=== PATIENT | female | born 1965 | race Caucasian/White ===

== ENCOUNTER 2021-08-01 19:00 | Emergency (ER) | payer BC ==
[~2021-08-01] VITALS: Ht 154.9 cm; Wt 74.8 kg
[2021-08-01 19:42] LABS: BASOPHILS # (AUTO) 0.1 K/uL (0.0-0.2); EOSINOPHILS # (AUTO) 0.1 K/uL (0.0-0.4); EOSINOPHILS % (AUTO) 1.6 % (0.0-4.0); HEMATOCRIT 40.4 % (36-48); LYMPHOCYTES # (AUTO) 2.4 K/uL (1.0-5.5); LYMPHOCYTES % (AUTO) 35.5 % (20.5-51.5); MEAN CORPUSCULAR HEMOGLOBIN 30 pg (27-31); MEAN CORPUSCULAR HGB CONC 35 % (32-36); MEAN CORPUSCULAR VOLUME 86 fL (79.0-98.0); MONOCYTES # (AUTO) 0.5 K/uL (0.0-1.0); MONOCYTES % (AUTO) 7.4 % (1.7-9.3); NEUTROPHILS # (AUTO) 3.7 K/uL (1.8-7.7); NEUTROPHILS % (AUTO) 54.5 % (40.0-70.0); PLATELET COUNT (AUTO) 274 K/uL (130-430); RED BLOOD CELL COUNT(AUTO) 4.72 MIL/uL (4.2-6.2); RED CELL DISTRIBUTION WIDTH 13.7 % (9.0-15.0); WHITE BLOOD COUNT (AUTO) 6.8 K/uL (4.8-10.8)
[2021-08-01 20:13] LABS: ALANINE AMINOTRANSFERASE 36 U/L (12-78); ALBUMIN 3.8 g/dL (3.4-4.8); ASPARTATE AMINOTRANSFERASE 21 U/L (10-37); CALCIUM 8.5 mg/dL (8.4-11.0); CREATININE 0.69 mg/dL (0.55-1.30); GLUCOSE 120 mg/dL (70-99); TOTAL BILIRUBIN 0.1 mg/dL (0.0-1.0); UREA NITROGEN, BLOOD 16 mg/dL (8-21)
[2021-08-01 20:16] LABS: GFR AFRICAN AMERICAN 114 mL/min (>90)
[2021-08-01 20:17] LABS: ANION GAP 12 (5-15); CHLORIDE 105 mmol/L (98-107); SODIUM SERUM 140 mmol/L (136-145)
[2021-08-01 20:20] LABS: C-REACTIVE PROTEIN QUANT < 0.2 mg/dL (0-0.5)
[2021-08-01 20:30] VITALS: BP_SYST 129
[2021-08-01] MEDS ORDERED: HYDR-3917 PO (20:34)
== END 2021-08-01 22:00 | disposition home or self-care (01) ==
LOC: SED 19:00
DX: S86.911A Strain of unspecified muscle(s) and tendon(s) at lower leg level, right leg, initial encounter (principal); X58.XXXA Exposure to other specified factors, initial encounter; Y93.89 Activity, other specified; Y92.89 Other specified places as the place of occurrence of the external cause; Y99.8 Other external cause status
CPT/HCPCS: 36415; 80053; 85025; 86140; 93971; 99284